=== PATIENT | female | born 1960 | race Caucasian/White ===

== ENCOUNTER 2017-06-03 08:39 | Emergency (ER) | payer MEDICARE, MEDICAID ==
[~2017-06-03] VITALS: Ht 154.9 cm; Wt 50.0 kg
[~2017-06-03 08:39] MED LIST: CALCTAB75 PO; CHLO10 PO; CITA20TA4 PO; DIAZ5 PO; LORT7.5T3 PO
[2017-06-03 08:42] VITALS: BP 121/79; PULSE 126; RESP 18; TEMP 98; O2SAT 98
[2017-06-03] MEDS ORDERED: CYCL5TAB PO (09:07)
[2017-06-03] MEDS ORDERED: ALPR0.25 PO ×2 (09:07)
[2017-06-03] MEDS ORDERED: HYDR-3516 PO (09:07)
--- NOTE | 2017-06-03 10:02 | RADRPT ---
EXAM DATE/TIME: 06/03/2017 09:42 [place] COMPARISON: No previous studies available for comparison. INDICATIONS : Trauma; fall three days ago. RADIATION DOSE: 56.35 CTDIvol (mGy) MEDICAL HISTORY : Carcinoma, lung. Cardiovascular disease Deep venous thrombosis. SURGICAL HISTORY : None. ENCOUNTER: Initial ACUITY: 3 days PAIN SCALE: 5/10 LOCATION: cranial TECHNIQUE: Multiple contiguous axial images were obtained of the head. Using automated exposure control and adj ustment of the mA and/or kV according to patient size, radiation dose was kept as low as reasonably a chievable to obtain optimal diagnostic quality images. DICOM format image data is available electro nically for review and comparison. FINDINGS: CEREBRUM: The ventricles are normal for age. No evidence of midline shift, mass lesion, hemorrhage or acute in farction. No extra-axial fluid collections are seen. POSTERIOR FOSSA: The cerebellum and brainstem are intact. The 4th ventricle is midline. The cerebellopontine angle i s unremarkable. EXTRACRANIAL: The visualized portion of the orbits is intact. SKULL: The calvaria is intact. No evidence of skull fracture. There is angulation of the nose to the left. There is a lucency at the base of the left nasal bone which could be from fracture. No soft tissue sw elling is seen suggesting this could be chronic. This can be correlated clinically. CONCLUSION: No intracranial abnormality seen. [place] MD on June 03, 2017 at 9:54 Board Certified Radiologist. This report was verified electronically.
[2017-06-03 10:50] LABS: AUTOMATED NEUTROPHIL # 3.5 TH/MM3 (1.8-7.7); BASOPHIL # 0.1 TH/MM3 (0-0.2); BASOPHIL % 0.9 % (0.0-2.0); EOSINOPHIL # 0.1 TH/MM3 (0-0.4); EOSINOPHIL % 1.2 % (0.0-4.0); HEMATOCRIT 39.7 % (35.0-46.0); HEMO FLAGS DIFF FINAL; LYMPH % 37.9 % (9.0-44.0); LYMPHOCYTE # 2.6 TH/MM3 (1.0-4.8); MEAN CELL VOLUME 97.5 FL (80.0-100.0); MEAN CORPUSCULAR HEMOGLOBIN 34.9 PG (27.0-34.0); MEAN CORPUSCULAR HGB CONC 35.8 % (32.0-36.0); MONO % 9.1 % (0.0-8.0); NEUT % 50.9 % (16.0-70.0); PLATELET COUNT 159 TH/MM3 (150-450); RED BLOOD COUNT 4.07 MIL/MM3 (4.00-5.30); RED CELL DISTRIBUTION WIDTH 13.3 % (11.6-17.2); WHITE BLOOD COUNT 6.9 TH/MM3 (4.0-11.0)
[2017-06-03 11:15] LABS: BICARBONATE 24.6 MEQ/L (21.0-32.0); POTASSIUM 3.5 MEQ/L (3.5-5.1)
--- NOTE | 2017-06-03 11:25 | PD ---
HPI Chief Complaint: Fall Time Seen by Provider: 09:43 Travel History International Travel<30 days: No Contact w/Intl Traveler<30days: No Traveled to known affect area: No History of Present Illness HPI This is a 56-year-old female who presents with complaints of head pain and dizziness after mechanical fall on . Patient states she took Ambien and was reportedly confused and not acting her normal self. She states her sister who she lives with stated that she fell at least 2 times. She does not recall the episode. Does not known whether she had loss of consciousness or not. She reports feeling slightly better however still has persistent headache and some dizziness. She denies any neck pain. She denies any abdominal pain. She states she has some mild discomfort in the left lateral rib. She denies any shortness of breath. PFSH Past Medical History Anemia: Yes Arthritis: No Autoimmune Disease: No Anxiety: Yes Depression: Yes Cancer: Yes (RIGHT LUNG) Cardiovascular Problems: Yes Chemotherapy: Yes COPD: Yes Diabetes: No Deep Vein Thrombosis: Yes (LEFT LEG) Endocrine: No Genitourinary: No Hepatitis: No Hiatal Hernia: No Immune Disorder: No Medical other: No Musculoskeletal: Yes Neurologic: Yes Psychiatric: Yes Reproductive: No Respiratory: Yes Radiation Therapy: Yes Sickle Cell Disease: No Thyroid Disease: No Influenza Vaccination: Yes Menopausal: Yes Past Surgical History Abdominal Surgery: No AICD: No Arteriovenous Shunt: No Cardiac Surgery: No Section: Yes (X 2) Ear Surgery: No Endocrine Surgery: No Eye Surgery: No Genitourinary Surgery: No Gynecologic Surgery: Yes ( X 2) Insulin Pump: No Joint Replacement: No Oral Surgery: No Pacemaker: No Thoracic Surgery: Yes (RT. PNEUMONECTOMY ON 08/18/10, lymphectomy) Other Surgery: Yes (INFUSOPORT RIGHT CHEST) Social History Alcohol Use: Yes (OCC) Tobacco Use: Yes (1/2 ppd) Substance Use: No Allergies-Medications (Allergen,Severity, Reaction): Coded Allergies: No Known Allergies (Verified , 06/03/17) Reported Meds & Prescriptions Reported Meds & Active Scripts Active Reported Flexeril (Cyclobenzaprine HCl) 5 Mg Tab 5 Mg PO TID Hydrocodone-Acetaminophen 5-325 mg Tab 1 Tab PO Q6H PRN Alprazolam 0.25 Mg Tab 0.25 Mg PO BID PRN Alprazolam 0.25 Mg Tab 0.25 Mg PO Q4H PRN Review of Systems Except as stated in HPI: all other systems reviewed are Neg General / Constitutional: No: Fever, Chills HENT: Positive: Headaches, Lightheadedness, No: Neck Stiffness, Neck Pain Cardiovascular: No: Chest Pain or Discomfort, Palpitations Respiratory: No: Cough, Shortness of Breath Gastrointestinal: No: Nausea, Vomiting, Abdominal Pain Genitourinary: No: Dysuria, Incontinence Musculoskeletal: Positive: Pain, No: Weakness (mild discomfort in her left lateral rib.), Cramping Neurologic: Positive: Dizziness (mild), Headache, No: Weakness, Change in Mentation Psychiatric: No: Disorder of Thought, Substance Abuse Physical Exam Narrative GENERAL: Well developed well-nourished female in no acute respiratory distress. SKIN: Focused skin assessment warm/dry. HEAD: Atraumatic. Normocephalic. EYES: Extraocular muscles were intact. No scleral icterus. No injection or drainage. ENT: No nasal bleeding or discharge. Mucous membranes pink and moist. NECK: Trachea midline. Supple. No posterior spinous process tenderness. CARDIOVASCULAR: Regular rate and rhythm. No murmur appreciated. RESPIRATORY: No accessory muscle use. Clear to auscultation. Breath sounds equal bilaterally. Mild discomfort to the left lateral rib. No crepitance. No deformity. GASTROINTESTINAL: Abdomen soft, non-tender, nondistended. MUSCULOSKELETAL: No obvious deformities. No clubbing. No cyanosis. No edema. NEUROLOGICAL: Awake and alert. No obvious cranial nerve deficits. Motor grossly within normal limits. Normal speech. PSYCHIATRIC: Appropriate mood and affect; insight and judgment normal. Data Data Last Documented VS Vital Signs Date Time Temp Pulse Resp B/P (MAP) Pulse Ox O2 Delivery O2 Flow Rate FiO2 06/03/17 08:42 98.0 126 18 121/79 (93) [address] Brain W/O Iv Contrast(Rout) (06/03/17 ) Complete Blood Count With Diff (06/03/17 10:24) Basic Metabolic Panel (Bmp) (06/03/17 10:24) Labs Laboratory Tests Test 06/03/17 09:20 White Blood Count 6.9 TH/MM3 Red Blood Count 4.07 MIL/MM3 Hemoglobin 14.2 GM/DL Hematocrit 39.7 % Mean Corpuscular Volume 97.5 FL Mean Corpuscular Hemoglobin 34.9 PG Mean Corpuscular Hemoglobin Concent 35.8 % Red Cell Distribution Width 13.3 % Platelet Count 159 TH/MM3 Mean Platelet Volume 8.4 FL Neutrophils (%) (Auto) 50.9 % Lymphocytes (%) (Auto) 37.9 % Monocytes (%) (Auto) 9.1 % Eosinophils (%) (Auto) 1.2 % Basophils (%) (Auto) 0.9 % Neutrophils # (Auto) 3.5 TH/MM3 Lymphocytes # (Auto) 2.6 TH/MM3 Monocytes # (Auto) 0.6 TH/MM3 Eosinophils # (Auto) 0.1 TH/MM3 Basophils # (Auto) 0.1 TH/MM3 CBC Comment DIFF FINAL Differential Comment Blood Urea Nitrogen 8 MG/DL Creatinine 0.81 MG/DL Random Glucose 89 MG/DL Calcium Level 8.7 MG/DL Sodium Level 134 MEQ/L Potassium Level 3.5 MEQ/L Chloride Level 95 MEQ/L Carbon Dioxide Level 24.6 MEQ/L Anion Gap 14 MEQ/L Estimat Glomerular Filtration Rate 73 ML/MIN MDM Medical Decision Making Medical Screen Exam Complete: Yes Emergency Medical Condition: Yes Differential Diagnosis Concussion versus subdural hematoma versus intracranial injury versus rib fracture Narrative Course 56-year-old female presents with complaints of headache. Patient also reports mild rib pain on the left side. Patient reports having fallen at least twice on . She states she was taking Ambien and does not recall the episode. The patient is awake alert and appropriate. There is no focal neuro deficits. The patient has some mild dizziness. CT scan of brain shows no evidence of acute intracranial process. She was offered chest x-ray and rib series however she has refused those at this point. Her breath sounds were equal bilaterally. She is not in any respiratory distress. Patient's electrolytes and blood count looked fine. Patient be discharged and told to avoid any heavy exertional activity until symptoms resolve. Diagnosis Primary Impression: Postconcussive syndrome Additional Impressions: Blunt head injury adverse reaction to medication Additional Instructions: Avoid taking Ambien. Follow up with her primary care physician. Disposition: 01 DISCHARGE HOME Condition: Stable Jorge Medina MD Jun 03, 2017 11:25
[2017-06-03] MEDS ORDERED: SODIUM CHLOR 0.9% 1000 ML INJ 1,000 ML IV ONE (13:00)
[2017-06-03 13:44] VITALS: BP 110/67; PULSE 97; RESP 14; O2SAT 100
== END 2017-06-03 14:11 | disposition home or self-care (01) ==
LOC: NEPC 08:39
DX: G44.309 Post-traumatic headache, unspecified, not intractable (principal); S09.90XA Unspecified injury of head, initial encounter; W19.XXXA Unspecified fall, initial encounter; R41.0 Disorientation, unspecified; T42.6X5A Adverse effect of other antiepileptic and sedative-hypnotic drugs, initial encounter; Y92.019 Unspecified place in single-family (private) house as the place of occurrence of the external cause
CPT/HCPCS: 70450; 80048; 85025; 96360; 99284; J7030